=== PATIENT | female | born 1995 | race Caucasian/White ===

== ENCOUNTER 2016-10-08 12:05 | Outpatient (CLI) | payer BC ==
[~2016-10-08 12:05] MED LIST: IRON18 MG PO; MOTRIN-DPS800 MG PO; PRENATAL VIT1 TAB PO; TYLENOL #3 DPS1 TAB PO; [UNRECOGNIZED DRUG - OTHER] TP
[2016-10-23] MEDS ORDERED: PERCOCET 5 DPS1 TAB PO (12:30)
[2016-10-23] MEDS ORDERED: FEOSOL-DPS325 MG PO (12:30)
[2016-10-23] MEDS ORDERED: NIPPLECREAM TP (12:31)
== END 2016-10-08 14:05 | disposition home or self-care (01) ==
LOC: 2LDRP 12:05 → BC 12:05
DX: Z03.71 Encounter for suspected problem with amniotic cavity and membrane ruled out (principal); Z3A.35 35 weeks gestation of pregnancy

== ENCOUNTER 2016-10-20 01:55 | Inpatient (IN) | payer BC ==
[~2016-10-20] VITALS: Ht 154.9 cm; Wt 99.3 kg
[2016-10-23] MEDS ORDERED: FEOSOL-DPS325 MG PO (12:30)
[2016-10-23] MEDS ORDERED: PERCOCET 5 DPS1 TAB PO (12:30)
[2016-10-23] MEDS ORDERED: NIPPLECREAM TP (12:31)
--- NOTE | 2016-10-25 09:04 | OR ---
ADMIT: 10/20/2016 RM/LOC: 201 [facility] MR#: [id number] [address] [address] [facility] [address] [place] [id number] Operative/Delivery Room Report SEX: F AGE: 21 : 1995 Corrected: 10/23/2016 0614 nj SURGERY DATE: 10/20/2016 SURGEON: Nathalie Montemayor MD PREOPERATIVE DIAGNOSES: 1. Term intrauterine at 37 weeks and 3 days. 2. Active labor. 3. Subchorionic hematoma on first-trimester imaging with no subsequent sequela. 4. Umbilical cord prolapse. POSTOPERATIVE DIAGNOSES: 1. Term intrauterine at 37 weeks and 3 days. 2. Active labor. 3. Subchorionic hematoma on first-trimester imaging with no subsequent sequela. 4. Umbilical cord prolapse. PROCEDURE: Primary low transverse section. ASSOCIATE PROFESSOR OF LITERACY: Gris Zuniga MD. WARP HAULER: Claudette Ahuja MD FINDINGS: Viable male with scores of 9 and 9 and a weight of 3008 g. Intact placenta with 3-vessel cord. Normal tubes, ovaries, and uterus seen. ANESTHETIC: General endotracheal. IV FLUIDS: 200 mL. URINE OUTPUT: 175 mL. ESTIMATED BLOOD LOSS: 600 mL. ANTIBIOTICS: 2 g of Ancef prior to skin incision. VTE PROPHYLAXIS: Sequential compression devices. INDICATIONS FOR PROCEDURE: This is a 21-year-old, G4, P3-0-0-3, who presented to Labor and Delivery at 37 and 3/7th days with contractions and was found to be in active labor. She did undergo AROM with no problems initially, approximately an hour later, when the nurse checked her, cord was palpable and when checked more cord was palpable. I was notified at this point in time. I immediately notified Anesthesia, and immediately presented to the patient's bedside. Explained the indication for an emergent section to the ADMIT: 10/20/2016 RM/LOC: 201 [facility] MR#: [id number] [id number] [address] [facility] [address] [place] [id number] Operative/Delivery Room Report SEX: F AGE: 21 : 1995 patient and risks, benefits, and alternatives of the procedure. The patient voiced understanding and did understand that due to the emergent nature of the surgery and the indication, she consented to proceed verbally. She did understand prior to the surgery that she would need general anesthetic as she would not be able to be positioned appropriately for spinal. PROCEDURE IN DETAIL: The patient was taken back to the OR. She was placed on the OR table. The nurse maintained hand in the vagina to keep head off the cord at all times. Once in the room in position, heart tones were again noted to be normal. She was prepped and draped, however, the prep was not given adequate time to dry per protocol due to the emergent nature of the C- section. She did receive antibiotics and counts were performed preoperatively. RSI by Anesthesia was performed and once the patient was intubated, a Pfannenstiel incision was then made to the underlying fascia. Fascia was incised through the midline until rectus was seen. Fascia was then extended bluntly. Midline of the rectus was visualized and and peritoneum was then identified and entered bluntly. Peritoneal incision was then extended bilaterally, bladder blade was placed with good visualization of lower uterine segment. Clean scalpel was then used to make hysterotomy incision at the lower uterine segment. Excision was extended bluntly and head was grasped, flexed, and brought to the level of the incision. Nuchal cord x1 was noted and reduced. The rest of the infant then delivered. The infant was vigorous. Due to general anesthetic, only short amount cord milking was performed and delayed cord clamping was not employed. Cord was then clamped and cut, and the infant was handed to the awaiting nursing and Pediatric staff. Cord blood and cord pH was obtained. Cord pH was 7.29 with a base deficit of 4.2. The uterus was then exteriorized and was cleared of all remaining clots and debris. Hysterotomy incision was then closed using 0 Vicryl in a running locked fashion. One area of bleeding was noted in the left angle and [id number] suture was placed to achieve hemostasis. Posterior cul-de-sac was then irrigated. Again, hemostasis was noted on the incision. The uterus was returned to the abdomen and paracolic gutters were inspected and clots were removed. Again, the hysterotomy incision was inspected and was noted to be hemostatic. The bladder was inspected, no evidence of injury or bleeding on the bladder pillars were noted. Rectus muscles were inspected any areas of bleeding were cauterized with Bovie. Fascia was then closed using 0 Vicryl in a running fashion. Subcutaneous tissue was then irrigated. A 2-0 plain gut was ADMIT: 10/20/2016 RM/LOC: 201 [facility] MR#: [id number] [address] [place] [id number] [place] [address] Operative/Delivery Room Report SEX: F AGE: 21 : 1995 used to reapproximate subcutaneous tissue, and skin was closed with 4-0 Vicryl in a running fashion. A Prevena plus was put over the incision due to inadequate prep. Sponge and instrument counts were correct x2. COMPLICATIONS: None. DISPOSITION: Mom extubated in stable condition to PACU. to nursery. Nathalie Montemayor MD/ yolanda JOB #: [id number] CC: Claudette Ahuja, Attending Physician Claudette Ahuja, Family Physician Claudette Ahuja MD Corrected: 10/23/2016 0614 njv
--- NOTE | 2016-10-30 07:37 | HP ---
ADMIT: 10/20/2016 RM/LOC: 201 [facility] MR#: [id number] [address] [address] [facility] [address] [place] [address] History and Physical SEX: F AGE: 21 : 1995 DATE OF SERVICE: CHIEF COMPLAINT: Contractions. HISTORY OF PRESENT ILLNESS: The patient is a 21-year-old, 4, para 3-0- 0-3 female at 37 weeks 3 days and with contractions but no leakage of fluid. She has been here all night with contractions and did progress from 4 cm on arrival to 5 cm. She lives an hour away from the facility and now with advanced cervical dilation. Still having contractions every 3 minutes and fairly painful with them. She has had a fairly unremarkable course. On her first trimester had a subchorionic hemorrhage and venous healy noted on ultrasound and had scant bleeding at that time, but no persistent bleeding and no other issues. Does have a history of depression, but no issues during the . She is blood type O negative and received RhoGAM. Antibody screen is negative, rubella immune, hepatitis B surface antigen negative, GBS negative. MEDICATIONS: vitamin daily. ALLERGIES: PENICILLIN. FAMILY HISTORY: Significant for diabetes in the family and her maternal grandmother and aunt have a history of breast cancer. The patient's brother has autism and father of baby's cousin has autism. Her brother also had a kidney removed as an . PAST MEDICAL HISTORY: The patient had a tonsillectomy in 2008. SOCIAL HISTORY: The patient is . The father of this baby is the father of her 2 last children. PHYSICAL EXAM: GENERAL: Patient is afebrile. VITAL SIGNS: Blood pressure now is fine at 127/80. It was a little high on arrival. ABDOMEN: Gravid with an estimated weight of 7.5 pounds and she has an adequate pelvis. heart tones are in the 130s and category I. Cervix 5 cm, it is 50% effaced, and -2 station. The vertex still felt well applied, not ballotable. Artificial rupture of membranes was performed with clear ADMIT: 10/20/2016 RM/LOC: 201 [facility] MR#: [id number] [address] [address] [place] [address] History and Physical SEX: F AGE: 21 : 1995 fluid resulting. She is franny every 3 minutes, and they palpate moderate. EXTREMITIES: Have 1+ edema. ASSESSMENT: 1. Term intrauterine in active labor. 2. Advanced cervical dilation in a multiparous female with long distance to facility. PLAN: Labor has been augmented with artificial rupture of membranes given the above factors. We will continue to monitor closely and she plans an epidural for anesthesia. Anticipate spontaneous vaginal delivery. Claudette Ahuja MD/ yolanda JOB #: [id number] CC: Claudette Ahuja, Attending Physician Claudette Ahuja, Family Physician
--- NOTE | 2016-11-13 09:38 | DS ---
ADMIT: 10/20/2016 RM/LOC: 201 [facility] MR#: [id number] [address] [facility] [address] [address] Discharge Summary SEX: F AGE: 21 : 1995 ADMISSION DATE: 10/20/2016 DISCHARGE DATE: 10/22/2016 FINAL DIAGNOSES: 1. 21-year-old, 4, para 4-0-0-4, with primary low transverse section at 37 weeks 3 days estimated gestational age. 2. Rh negative. 3. Primary low transverse section secondary to cord prolapse. REASON FOR ADMISSION: This is a 21-year-old, 4, para 4-0-0-4, with an intrauterine at 37 weeks 3 days at the time of presentation. The patient had regular contractions at the time of presentation. She reported normal movement. She denied leaking of fluid or vaginal bleeding. Her labor course progressed and AROM was performed. A cord prolapse did occur resulting in nonreassuring heart tones. The patient was taken for an emergency C section. She ultimately underwent a primary low transverse section and had a male infant with Apgars of 9 and 9 and a weight of 3008 g. The baby's hospital course was uncomplicated. The patient's hospital course was complicated by iron deficiency anemia with a hemoglobin of 8.7. She was started on iron supplementation. Her course was otherwise uncomplicated. She was breast feeding. She is meeting discharge criteria and desires to be discharged to home today, postop day two. She did have a ProVena Plus Wound Vac placed in the Operating Room due to inadequate sterile prep for the procedure. Recommend followup in five days from time of discharge for removal of ProVena Plus. DELIVERY INFORMATION: Admission time was 0350 on 10/20/2016. Rupture of membranes 0655 on 10/20/2016. Time of delivery was 0751 on 10/20/2016. INFORMATION: Delivery date 10/20/2016. Delivery time 0751. Infant sex is male. Delivery type: Primary low transverse section. of one minute was 9. at five minutes was 9. weight was 3008 g, which is an average gestational age. CURRENT LABS: Antepartum hemoglobin 12.5, hemoglobin 8.7. All labs final at time of discharge. DISCHARGE MEDICATIONS: The patient to be discharged home on: 1. Iron sulfate 325 mg p.o. daily. 2. Motrin 800 mg p.o. t.i.d. p.r.n. 3. Percocet 5 mg one to two tablets q. four hours p.r.n. 4. Patient should continue her vitamin. ADMIT: 10/20/2016 RM/LOC: 201 [facility] MR#: [id number] [address] [place] [address] Discharge Summary SEX: F AGE: 21 : 1995 DISCHARGE INSTRUCTIONS: The patient was instructed to have pelvic rest for six weeks. No driving while on narcotics. Recommended a 20 pound lifting restriction for six weeks. She should notify her physician with a temperature greater than 100.4 degrees and if she is having any brisk vaginal bleeding where she soaks through greater than one pad per hour, if any area progressively becomes red or painful, or if her pain is no longer controlled on pain medications. as tolerated. Discussed symptoms of blues or depression, urged her to contact us immediately should that become a concern. Recommend follow up in five days for a visit. The patient was discussed with Dr. Adonis Melendez on day of discharge. Gris Zuniga MD Resident / Adonis Melendez MD / [email or web address] JOB #: [id number] CC: Claudette Ahuja MD, Attending Physician Claudette Ahuja MD, Family Physician
== END 2016-10-22 13:30 | disposition home or self-care (01) | DRG 766 ==
LOC: BC 01:55 → 2LDRP 01:55 → BC 11-07 12:20
PROVIDERS: ADMIT Family Medicine
PROC: 10907ZC Drainage of Amniotic Fluid, Therapeutic from Products of Conception, Via Natural or Artificial Opening (ICD-10-PCS; principal; 2016-10-20)
PROC: 10D00Z1 Extraction of Products of Conception, Low, Open Approach (ICD-10-PCS; principal; 2016-10-20)
DX: O69.81X0 Labor and delivery complicated by cord around neck, without compression, not applicable or unspecified (principal); D50.9 Iron deficiency anemia, unspecified; O69.0XX0 Labor and delivery complicated by prolapse of cord, not applicable or unspecified; O76 Abnormality in fetal heart rate and rhythm complicating labor and delivery; O90.81 Anemia of the puerperium; Z3A.37 37 weeks gestation of pregnancy; Z37.0 Single live birth